=== PATIENT | female | born 1995 | race Caucasian/White ===

== ENCOUNTER 2022-09-23 09:41 | Emergency (ER) | payer SELFPAY ==
[2022-09-23 09:48] VITALS: BP 160/85; PULSE 107; RESP 18; TEMP 36.6; O2SAT 100; BMI 21.1
--- NOTE | 2022-09-23 10:11 | ED_ITS ---
HPI - Extremity Injury (Lower) General Time Seen by Provider: 10:11 Date Seen: 09/23/22 Chief Complaint: Extremity Pain/Injury, Lower Stated Complaint: Right knee injury Time Seen by Provider: 09/23/22 10:11 Source: patient and RN notes reviewed Mode of arrival: ambulatory Limitations: no limitations History of Present Illness HPI Narrative: Patient is a very pleasant 27-year-old female coming in with right knee pain and history MCL and ACL injury. She was sitting down on the couch, just twisted her knee a bit yesterday and now feels swollen, painful. It feels like when she initially injured her ligaments before. She believes this was a year so ago. She did physical therapy, conservative management, did not have surgery. We discussed x-rays she declines them and I do think that that is likely reasonable. Discussed recommending orthopedic follow-up, consideration new imaging with MRI. Reviewed with her that we typically will not do this type of imaging through the ER as we do not have adequate emergent prior authorization process. She does understand. She states she can get this done through [employer] where she works in [employer] department there. She states she just went on a personal leave from there for other reasons. She would like our phone number to our orthopedic providers. She does not have crutches or knee immobilizer at home. MD complaint: knee injury Related Data Home Medications Medication Instructions Recorded Confirmed quetiapine 100 mg tablet (Seroquel) 100 mg PO QHS 09/23/22 09/23/22 Allergies Allergy/AdvReac Type Severity Reaction Status Date / Time amoxicillin Allergy Mild hives Uncoded 09/23/22 09:55 Review of Systems Narrative: As per HPI [facility] Medical History (Updated 09/23/22 @ 10:24 by Lashae Shipley MD) Bipolar 1 disorder Insomnia PTSD (post-traumatic stress disorder) Schizoaffective disorder, bipolar type Social History Smoking Status: Smoker, status unknown Do you use any of these nicotine containing products: Vaping Products Second hand tobacco smoke exposure: No How often do you have a drink containing alcohol: monthly or less AUDIT-C Alcohol total score: 1 Non-prescribed substance use: denies use Exam Const: Vital Signs, click to edit/add: Vital Signs - 24 hr 09/23/22 09:48 Temperature 97.8 F Pulse Rate [Right Pulse Oximeter] 107 H Respiratory Rate 18 Blood Pressure [Ri ght Upper Arm] 160/85 H Pulse Oximetry 100 Oxygen Delivery Pa thod Room Air Documenting provider has reviewed patient's vital signs: yes Common normals: no apparent distress, average body habitus, oriented x3, no limitations, healthy appearing and alert Other: Both lower extremities visualized. There is no pitting edema of either. Neurovascular is intact. Has effusion and medial as well as lateral joint line tenderness of her right knee. There is no erythema or ecchymosis. Patella is tracking centrally. She can straight leg raise without difficulty. She is guarding when I attempt to do maneuvers for testing of the ligaments including the medial and lateral collateral ligaments as well as her ACL. Cannot get a good exam at this time as far as ligamentous stability. Neuro: Common normals: oriented x3 Sensorium/orientation: alert Course Course Hospital Course: She is declining x-rays which I think is appropriate in this scenario. There is no active her new trauma. She likely just aggravated her old knee issues. Will provide a knee immobilizer and crutches. Patient declined physical therapy referral from md. Vital Signs Vital signs: Initial Vital Signs Temperature 97.8 F 09/23/22 09:48 Temperature Source Temporal Artery Scan 09/23/22 09:48 Pulse Rate 107 H 09/23/22 09:48 Respiratory Rate 18 09/23/22 09:48 Blood Pressure 160/85 H 09/23/22 09:48 Blood Pressure Mean 110 09/23/22 09:48 Blood Pressure Position Sitting 09/23/22 09:48 Pulse Oximetry 100 09/23/22 09:48 Oxygen Delivery Method 09/23/22 09:48 Vital Signs Temperature 97.8 F 09/23/22 09:48 Pulse Rate 107 H 09/23/22 09:48 Respiratory Rate 18 09/23/22 09:48 Blood Pressure 160/85 H 09/23/22 09:48 Pulse Oximetry 100 09/23/22 09:48 Oxygen Delivery Method 09/23/22 09:48 Temperature 97.8 F 09/23/22 09:48 Pulse Rate 107 H 09/23/22 09:48 Respiratory Rate 18 09/23/22 09:48 Blood Pressure 160/85 H 09/23/22 09:48 Pulse Oximetry 100 09/23/22 09:48 Oxygen Delivery Method 09/23/22 09:48 Critical Care Time Critical Care Time Critical Care Time: No Discharge Plan Discharge Clinical Impression: Acute pain of right knee Condition: Stable Instructions: Knee Pain (ED) Additional Instructions: Can call [phone] to get scheduled to see 1 of our orthopedists in town here in [place]. They can assist you with getting an MRI scheduled if they feel it is necessary. Use crutches and knee immobilizer for stability and pain-free weight-bearing. Ice, elevate to help decrease pain and swelling. Tylenol and ibuprofen per bottle directions as needed for discomfort. Activity Level: Activity as Tolerated Prescriptions: No Action quetiapine [Seroquel] 100 mg tablet 100 mg PO QHS Stand Alone Forms: Events Core Info Instructions
== END 2022-09-23 11:00 | disposition home or self-care (01) ==
LOC: ED 10:27
PROVIDERS: Emergency Provider Family Medicine
DX: M25.561 Pain in right knee (principal); X50.1XXA Overexertion from prolonged static or awkward postures, initial encounter
CPT/HCPCS: 99283